=== PATIENT | male | born 1965 | race Caucasian/White ===

== ENCOUNTER 2020-02-29 14:24 | Inpatient (IN) | payer BC ==
[~2020-02-29] VITALS: Ht 172.7 cm; Wt 83.8 kg
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
[2020-02-29 14:57] LABS: BASO % 0 % (0-3); EOS # 0.1 x10^3/uL (0.0-0.7); EOS % 0 % (0-3); HEMATOCRIT 46.1 % (39.0-53.0); HEMOGLOBIN 15.9 g/dL (13.0-17.5); LYMPH # 1.2 x10^3/uL (1.0-4.8); LYMPH % 8 % (24-48); MEAN CORPUSCULAR HEMOGLOBIN 30 pg (25-35); MEAN CORPUSCULAR HGB CONC 34 g/dL (31-37); MEAN CORPUSCULAR VOLUME 87 fL (79-100); MONO # 1.2 x10^3/uL (0.0-1.1); MONO % 8 % (0-9); NEUT # 12.3 x10^3/uL (1.8-7.7); NEUT % 83 % (31-73); PLATELET COUNT 195 x10^3/uL (140-400); WHITE BLOOD COUNT 14.8 x10^3/uL (4.0-11.0)
[2020-02-29] MEDS ORDERED: IV NORMAL SALINE 1000ML BAG 1,000 ML IV ONE (15:00)
[2020-02-29 15:12] LABS: CALCIUM 9.5 mg/dL (8.5-10.1); CREATININE 0.7 mg/dL (0.7-1.3); GFR 116.7
[2020-02-29] MEDS ORDERED: IOHEXOL 300 MG/ML 100ML VIAL. IV ONE (15:15)
[2020-02-29] MEDS ORDERED: CONTRAST GIVEN. MC PRN (15:15)
[2020-02-29 15:20] LABS: ALBUMIN 4.5 g/dL (3.4-5.0); ALBUMIN/GLOBULIN RATIO 1.5 (1.0-1.7); TOTAL BILIRUBIN 0.5 mg/dL (0.2-1.0); TOTAL PROTEIN 7.5 g/dL (6.4-8.2)
[2020-02-29 15:41] LABS: BILIRUBIN,URINE NEGATIVE (NEG); CLARITY,URINE CLEAR; COLOR,URINE YELLOW; NITRITE,URINE NEGATIVE (NEG); PROTEIN,URINE NEGATIVE (NEG-TRACE)
[2020-02-29 15:52] LABS: BACTERIA,URINE 0 /HPF (0-FEW); BARBITURATES NEG (NEG); BENZODIAZEPINES NEG (NEG); CANNABINOIDS NEG (NEG); COCAINE NEG (NEG); METHADONE NEG (NEG); OPIATES NEG (NEG); PHENCYCLIDINE NEG (NEG); RBC,URINE OCC /HPF (0-2); SQUAMOUS EPITHELIAL CELL,UR OCC /LPF; WBC,URINE OCC /HPF (0-4)
[2020-02-29 15:53] LABS: AMPHETAMINE/METHAMPHETAMINE NEG (NEG)
--- NOTE | 2020-02-29 16:18 | RAD ---
Exam: CT abdomen and pelvis with contrast INDICATION: Right lower quadrant pain TECHNIQUE: Sequential axial images through the abdomen and pelvis obtained following the administration of 75 mL of Omni 300 IV contrast. Sagittal and coronal reformatted images were reconstructed from the axial data and reviewed. Comparisons: None FINDINGS: Heart size is normal. No pericardial effusion. Visualized lung bases are clear. No pleural effusion. There is diffuse hepatic steatosis. Spleen, pancreas, gallbladder and adrenals are unremarkable. No perinephric inflammation or hydronephrosis. Kidneys demonstrate symmetric enhancement. No renal or ureteral calculi are identified. Bladder is decompressed not well evaluated. Prostate is not enlarged. The appendix is dilated with adjacent fat stranding. No evidence for perforation or adjacent abscess. Remainder of the large and small bowel are unremarkable. No free intra-abdominal air or fluid. No obstruction. Abdominal aorta has a normal course and caliber. Abdominal vasculature is patent. No enlarged intra-abdominal lymph nodes are identified. No suspicious osseous lesions or acute fractures. IMPRESSION: Findings of acute appendicitis. No evidence for perforation or adjacent abscess. Exposure: One or more of the following in the visualized dose reduction techniques were utilized for this examination: 1. Automated exposure control 2. Adjustment of the MA and/or KV according to patient size 3. Use of iterative of reconstructive technique Electronically signed by: Trupti Wagner MD (02/29/2020 4:15 PM) [id number]
[2020-02-29] MEDS ORDERED: PIPERACILLIN/TAZOBACTAM 3.375 GM in IV NORMAL SALINE 50ML 50 ML IV ONE (16:30)
[2020-02-29] MEDS ORDERED: ALBUTEROL SULFATE 2.5 MG/3 ML NEBU. NEB PRN (17:00)
[2020-02-29] MEDS ORDERED: ACETAMINOPHEN 650 MG SUPP.RECT. PR PRN (17:00)
[2020-02-29] MEDS ORDERED: ONDANSETRON PF 4 MG/2 ML VIAL. IV PRN (17:00)
[2020-02-29] MEDS ORDERED: ACETAMINOPHEN 325 MG TABLET. PO PRN (17:00)
[2020-02-29] MEDS ORDERED: diphenhydrAMINE 50 MG/ML VIAL IVP PRN (17:00)
[2020-02-29] MEDS ORDERED: ZOLPIDEM 5 MG TABLET. PO PRN (17:00)
[2020-02-29] MEDS: ENOXAPARIN 40 MG/0.4 ML SYRINGE. SQ SCH (18:35)
--- NOTE | 2020-02-29 19:10 | NUR ---
Patient admitted from ER to room 444 per cart. Admitting diagnosis: acute appendicitis. Patient c/o of RLQ abdominal pain that started at 0200. He went to the doctor at [place] and was told to come to ER for a CT Scan. Positive for acute appendicitis. Patient is A&Ox4 and has NKA. Patient is anxious about being in the hospital. Patient is comfortable a this time. Surgery scheduled for 03/01 at 12noon. Will continue to monitor.
[2020-02-29 19:15] VITALS: BP 115/65
--- NOTE | 2020-02-29 19:32 | PDOC1 ---
History and Physical Date of Admission Date of Admission 02/29/2020 Identification/Chief Complaint Chief Complaint Dianna augustine Source Source: Chart review History of Present Illness History of Present Illness Patient is a 55-year-old gentleman with past medical history of diabetes mellitus type 2 who was in his usual state of health until this morning at 3 AM when he started complaining of right lower quadrant pain. The patient night prior had taken medication for erectile dysfunction and was concerned that this may have provoked this sudden onset of abdominal pain. He tried to cope with the symptoms at home nevertheless he continued to progress to the point that he described the pain as a sharp sensation started as a 3 out of 10 intensity and finally when he consulted the emergency department was 10 out of 10. The patient has some nausea no vomiting no dietary transgressions no sick contacts have been reported. He was brought to the emergency department after just walking around was painful for the patient. He denied any chills no diaphoresis was reported no diarrhea and the patient was diagnosed with an acute a ppendicitis in the emergency department reason why we were asked to admit the patient for definitive treatment. At the time of my evaluation patient is in no acute distress he is laying in bed in the lateral decubitus he is comfortable and in no pain. Patient denies any nausea no vomiting has been reported. Plan of care explained detail and all concerns addressed to the best of my abilities Past Medical History Endocrine: Diabetes Past Surgical History Past Surgical History: No pertinent history Family History Family History: No Significant Social History Smoke: No ALCOHOL: none Drugs: None Current Problem List Problem List Problems Medical Problems: (1) Acute appendicitis Status: Acute Current Medications Current Medications Current Medications Medications (Trade) Dose Ordered Sig/Chan Start Time Stop Time Status Last Admin Dose Admin Acetaminophen (Tylenol Supp) 650 mg PRN Q4HRS PRN 02/29/20 17:00 Acetaminophen (Tylenol) 650 mg PRN Q4HRS PRN 02/29/20 17:00 Albuterol Sulfate (Ventolin Neb Soln) 2.5 mg PRN Q4HRS PRN 02/29/20 17:00 Diphenhydramine HCl (Benadryl) 25 mg PRN Q4HRS PRN 02/29/20 17:00 Enoxaparin Sodium (Lovenox 40mg Syringe) 40 mg Q24H 02/29/20 18:00 02/29/20 18:35 40 MG Info (CONTRAST GIVEN -- Rx MONITORING) 1 each PRN DAILY PRN 02/29/20 15:15 03/02/20 15:14 Iohexol (Omnipaque 300 Mg/ml) 75 ml 1X ONCE 02/29/20 15:15 02/29/20 15:16 DC 02/29/20 15:15 75 ML Lorazepam (Ativan Inj) 1 mg PRN Q4HRS PRN 02/29/20 17:00 02/29/20 18:35 1 MG Ondansetron HCl (Zofran) 4 mg PRN Q4HRS PRN 02/29/20 17:00 Piperacillin Sod/ Tazobactam Sod 3.375 gm/Sodium Chloride 50 ml @ 100 mls/hr Q6HRS 03/01/20 00:00 Sodium Chloride 1,000 ml @ 100 mls/hr Q10H 02/29/20 16:50 Zolpidem Tartrate (Ambien) 5 mg PRN QHS PRN 02/29/20 17:00 Allergies Allergies Allergies Coded Allergies Type Severity Reaction Last Updated Verified No Known Drug Allergies 02/29/20 No ROS Review of System CONSTITUTIONAL: No fever or chills EYES: No recent changes SKIN: No rash or itching CARDIOVASCULAR: No chest pain, syncope, palpitations, or edema RESPIRATORY: No SOB or cough GASTROINTESTINAL: No nausea, vomiting or abdominal pain NEUROLOGICAL: No headaches or weakness ENDOCRINE: No cold or heat intolerance GENITOURINARY: No urgency or frequency of urination MUSCULOSKELETAL: No back pain or joint pain LYMPHATICS: No enlarged lymph nodes PSYCHIATRIC: No anxiety or depression Physical Exam Physical Exam GEN.: No apparent distress. Alert and oriented. HEENT: Head is normocephalic, atraumatic NECK: Supple. LUNGS: Clear to auscultation. HEART: RRR, S1, S2 present. Peripheral pulses intact ABDOMEN: Soft, nontender. Positive bowel sounds. EXTREMITIES: Without any cyanosis. NEUROLOGIC: Normal speech, normal tone PSYCHIATRIC: Normal affect, normal mood. SKIN: No ulcerations Vitals Vitals Vital Signs Date Time Temp Pulse Resp B/P (MAP) Pulse Ox O2 Delivery O2 Flow Rate FiO2 02/29/20 18:00 90 124/63 (83) 98 Room Air 02/29/20 14:39 97.9 16 97.9 Labs Labs Laboratory Tests Test 02/29/20 14:47 02/29/20 15:20 02/29/20 17:25 White Blood Count 14.8 x10^3/uL (4.0-11.0) Red Blood Count 5.30 x10^6/uL (4.30-5.70) Hemoglobin 15.9 g/dL (13.0-17.5) Hematocrit 46.1 % (39.0-53.0) Mean Corpuscular Volume 87 fL (79-100) Mean Corpuscular Hemoglobin 30 pg (25-35) Mean Corpuscular Hemoglobin Concent 34 g/dL (31-37) Red Cell Distribution Width 14.0 % (11.5-14.5) Platelet Count 195 x10^3/uL (140-400) Neutrophils (%) (Auto) 83 % (31-73) Lymphocytes (%) (Auto) 8 % (24-48) Monocytes (%) (Auto) 8 % (0-9) Eosinophils (%) (Auto) 0 % (0-3) Basophils (%) (Auto) 0 % (0-3) Neutrophils # (Auto) 12.3 x10^3/uL (1.8-7.7) Lymphocytes # (Auto) 1.2 x10^3/uL (1.0-4.8) Monocytes # (Auto) 1.2 x10^3/uL (0.0-1.1) Eosinophils # (Auto) 0.1 x10^3/uL (0.0-0.7) Basophils # (Auto) 0.0 x10^3/uL (0.0-0.2) Prothrombin Time 11.0 SEC (11.7-14.0) Prothromb Time International Ratio 0.8 (0.8-1.1) Sodium Level 139 mmol/L (136-145) Potassium Level 4.0 mmol/L (3.5-5.1) Chloride Level 101 mmol/L (98-107) Carbon Dioxide Level 27 mmol/L (21-32) Anion Gap 11 (6-14) Blood Urea Nitrogen 10 mg/dL (8-26) Creatinine 0.7 mg/dL (0.7-1.3) Estimated GFR (Cockcroft-Gault) 116.7 BUN/Creatinine Ratio 14 (6-20) Glucose Level 124 mg/dL (70-99) Calcium Level 9.5 mg/dL (8.5-10.1) Total Bilirubin 0.5 mg/dL (0.2-1.0) Aspartate Amino Transf (AST/SGOT) 31 U/L (15-37) Alanine Aminotransferase (ALT/SGPT) 77 U/L (16-63) Alkaline Phosphatase 49 U/L (46-116) Troponin I Quantitative < 0.017 ng/mL (0.000-0.055) Total Protein 7.5 g/dL (6.4-8.2) Albumin 4.5 g/dL (3.4-5.0) Albumin/Globulin Ratio 1.5 (1.0-1.7) Lipase 101 U/L (73-393) Urine Collection Type Unknown Urine Color Yellow Urine Clarity Clear Urine pH 6.0 (<5.0-8.0) Urine Specific [place] <=1.005 (1.000-1.030) Urine Protein Negative mg/dL (NEG-TRACE) Urine Glucose (UA) Negative mg/dL (NEG) Urine Ketones (Stick) Trace mg/dL (NEG) Urine Blood Negative (NEG) Urine Nitrite Negative (NEG) Urine Bilirubin Negative (NEG) Urine Urobilinogen Dipstick 1.0 mg/dL (0.2 mg/dL) Urine Leukocyte Esterase Negative (NEG) Urine RBC Occ /HPF (0-2) Urine WBC Occ /HPF (0-4) Urine Squamous Epithelial Cells Occ /LPF Urine Bacteria 0 /HPF (0-FEW) Urine Opiates Screen Neg (NEG) Urine Methadone Screen Neg (NEG) Urine Barbiturates Neg (NEG) Urine Phencyclidine Screen Neg (NEG) Urine Amphetamine/Methamphetamine Neg (NEG) Urine Benzodiazepines Screen Neg (NEG) Urine Cocaine Screen Neg (NEG) Urine Cannabinoids Screen Neg (NEG) Urine Ethyl Alcohol Neg (NEG) SARS-CoV-2 Antigen (Rapid) Negative (NEGATIVE) Laboratory Tests Test 02/29/20 14:47 02/29/20 15:20 02/29/20 17:25 White Blood Count 14.8 x10^3/uL (4.0-11.0) Red Blood Count 5.30 x10^6/uL (4.30-5.70) Hemoglobin 15.9 g/dL (13.0-17.5) Hematocrit 46.1 % (39.0-53.0) Mean Corpuscular Volume 87 fL (79-100) Mean Corpuscular Hemoglobin 30 pg (25-35) Mean Corpuscular Hemoglobin Concent 34 g/dL (31-37) Red Cell Distribution Width 14.0 % (11.5-14.5) Platelet Count 195 x10^3/uL (140-400) Neutrophils (%) (Auto) 83 % (31-73) Lymphocytes (%) (Auto) 8 % (24-48) Monocytes (%) (Auto) 8 % (0-9) Eosinophils (%) (Auto) 0 % (0-3) Basophils (%) (Auto) 0 % (0-3) Neutrophils # (Auto) 12.3 x10^3/uL (1.8-7.7) Lymphocytes # (Auto) 1.2 x10^3/uL (1.0-4.8) Monocytes # (Auto) 1.2 x10^3/uL (0.0-1.1) Eosinophils # (Auto) 0.1 x10^3/uL (0.0-0.7) Basophils # (Auto) 0.0 x10^3/uL (0.0-0.2) Prothrombin Time 11.0 SEC (11.7-14.0) Prothromb Time International Ratio 0.8 (0.8-1.1) Sodium Level 139 mmol/L (136-145) Potassium Level 4.0 mmol/L (3.5-5.1) Chloride Level 101 mmol/L (98-107) Carbon Dioxide Level 27 mmol/L (21-32) Anion Gap 11 (6-14) Blood Urea Nitrogen 10 mg/dL (8-26) Creatinine 0.7 mg/dL (0.7-1.3) Estimated GFR (Cockcroft-Gault) 116.7 BUN/Creatinine Ratio 14 (6-20) Glucose Level 124 mg/dL (70-99) Calcium Level 9.5 mg/dL (8.5-10.1) Total Bilirubin 0.5 mg/dL (0.2-1.0) Aspartate Amino Transf (AST/SGOT) 31 U/L (15-37) Alanine Aminotransferase (ALT/SGPT) 77 U/L (16-63) Alkaline Phosphatase 49 U/L (46-116) Troponin I Quantitative < 0.017 ng/mL (0.000-0.055) Total Protein 7.5 g/dL (6.4-8.2) Albumin 4.5 g/dL (3.4-5.0) Albumin/Globulin Ratio 1.5 (1.0-1.7) Lipase 101 U/L (73-393) Urine Collection Type Unknown Urine Color Yellow Urine Clarity Clear Urine pH 6.0 (<5.0-8.0) Urine Specific [place] <=1.005 (1.000-1.030) Urine Protein Negative mg/dL (NEG-TRACE) Urine Glucose (UA) Negative mg/dL (NEG) Urine Ketones (Stick) Trace mg/dL (NEG) Urine Blood Negative (NEG) Urine Nitrite Negative (NEG) Urine Bilirubin Negative (NEG) Urine Urobilinogen Dipstick 1.0 mg/dL (0.2 mg/dL) Urine Leukocyte Esterase Negative (NEG) Urine RBC Occ /HPF (0-2) Urine WBC Occ /HPF (0-4) Urine Squamous Epithelial Cells Occ /LPF Urine Bacteria 0 /HPF (0-FEW) Urine Opiates Screen Neg (NEG) Urine Methadone Screen Neg (NEG) Urine Barbiturates Neg (NEG) Urine Phencyclidine Screen Neg (NEG) Urine Amphetamine/Methamphetamine Neg (NEG) Urine Benzodiazepines Screen Neg (NEG) Urine Cocaine Screen Neg (NEG) Urine Cannabinoids Screen Neg (NEG) Urine Ethyl Alcohol Neg (NEG) SARS-CoV-2 Antigen (Rapid) Negative (NEGATIVE) VTE Prophylaxis Ordered VTE Prophylaxis Devices: No VTE Pharmacological Prophylaxi: Yes Assessment/Plan Assessment/Plan Acute appendicitis Diabetes mellitus type 2 Leukocytosis secondary to appendicitis Plan N.p.o. as per Dr. Rodriguez OR in the a.m. Pain management Further recommendations based on the clinical course DVT prophylaxis with Lovenox Justifications for Admission Other Justification NAVDEEP ELIAS MD Feb 29, 2020 19:31
[2020-02-29] MEDS ORDERED: fentaNYL PF VIAL 100 MCG/2 ML VIAL IVP PRN (20:15)
[2020-02-29] MEDS: IV NORMAL SALINE 1000ML BAG 1,000 ML IV SCH (20:54)
[2020-02-29 23:36] VITALS: BP 110/56
[2020-03-01] VITALS (12 sets, daily range): BP systolic 99–111; BP diastolic 59–68
--- NOTE | 2020-03-01 04:12 | EKG ---
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
[2020-03-01] MEDS: PIPERACILLIN/TAZOBACTAM 3.375 GM in IV NORMAL SALINE 50ML 50 ML IV SCH ×6 (05:44→23:21)
[2020-03-01] MEDS ORDERED: IV RINGERS,LACTATED 1000ML 1,000 ML IV SCH (07:59)
[2020-03-01] MEDS ORDERED: PROCHLORPERAZINE 10 MG/2 ML VIAL. IV PRN (08:00)
[2020-03-01] MEDS ORDERED: ONDANSETRON PF 4 MG/2 ML VIAL. IV PRN (08:00)
[2020-03-01] MEDS ORDERED: HYDROmorphone 2 MG/ML VIAL IV PRN (08:00)
[2020-03-01] MEDS ORDERED: MORPHINE SULFATE 2 MG/ML VIAL. IV PRN (08:00)
[2020-03-01] MEDS ORDERED: fentaNYL PF VIAL 100 MCG/2 ML VIAL IV PRN (08:00)
[2020-03-01] MEDS ORDERED: fentaNYL PF VIAL 100 MCG/2 ML VIAL ONE ×2 (08:43→10:54)
[2020-03-01] MEDS ORDERED: ROCURONIUM 50 MG/5 ML VIAL. ONE (08:43)
[2020-03-01] MEDS ORDERED: KETOROLAC 30 MG/ML VIAL. ONE (08:44)
[2020-03-01] MEDS ORDERED: SEVOFLURANE 31 TO 60 MINUTES. IH ONE (08:44)
[2020-03-01] MEDS ORDERED: LIDOCAINE 2% PF 5 ML VIAL. ONE (08:44)
[2020-03-01] MEDS ORDERED: NEOSTIGMINE METHYLSULFATE 5 MG/5 ML SYRINGE. ONE (08:44)
[2020-03-01] MEDS ORDERED: PROPOFOL 10 MG/ML (20ML) VIAL. IV ONE ×2 (08:44→10:34)
[2020-03-01] MEDS ORDERED: GLYCOPYRROLATE 1 MG/5 ML VIAL. ONE (08:44)
[2020-03-01] MEDS ORDERED: DEXAMETHASONE SOD PHOS 4 MG/ML VIAL ONE (08:44)
[2020-03-01] MEDS ORDERED: ONDANSETRON PF 4 MG/2 ML VIAL. ONE (08:44)
[2020-03-01] MEDS ORDERED: BUPIVACAINE-EPI 0.5%-1:200000 MPF 30 ML VIAL. ONE (09:43)
--- NOTE | 2020-03-01 09:45 | NUR ---
SW following. Discussed with RN, pt from home, room air, NPO, COVID-19 negative. Pt having surgery today lap appy vs open appy. SW will continue to follow.
[2020-03-01] MEDS ORDERED: SUCCINYLCHOLINE 200 MG/10 ML VIAL. ONE (10:01)
--- NOTE | 2020-03-01 10:01 | PDOC2 ---
CONSULT Date of Consult Date of Consult DATE: 03/01/20 TIME: 09:59 History of Present Illness Reason for Visit: The patient is a 55-year-old male who presented with abdominal pain. The pain began yesterday and was located in the right lower quadrant. It remained persistent prompting him to report to the emergency department. He denies any nausea or vomiting. The evaluation in the emergency department is consistent with acute appendicitis. Past Medical History Endocrine: Diabetes Past Surgical History Past Surgical History: No pertinent history Family History Family History: No Significant Social History No ALCOHOL: none Drugs: None Current Problem List Problem List Problems Medical Problems: (1) Acute appendicitis Status: Acute Current Medications Current Medications Current Medications Sodium Chloride 1,000 ml @ 1,000 mls/hr 1X ONCE IV Last administered on 02/29/20at 14:53; Start 02/29/20 at 15:00; Stop 02/29/20 at 15:59; Status DC Iohexol (Omnipaque 300 Mg/ml) 75 ml 1X ONCE IV Last administered on 02/29/20at 15:15; Start 02/29/20 at 15:15; Stop 02/29/20 at 15:16; Status DC Info (CONTRAST GIVEN -- Rx MONITORING) 1 each PRN DAILY PRN MC SEE COMMENTS; Start 02/29/20 at 15:15; Stop 03/02/20 at 15:14 Piperacillin Sod/ Tazobactam Sod 3.375 gm/Sodium Chloride 50 ml @ 100 mls/hr 1X ONCE IV Last administered on 02/29/20at 17:03; Start 02/29/20 at 16:30; Stop 02/29/20 at 16:59; Status DC Sodium Chloride 1,000 ml @ 100 mls/hr Q10H IV Last administered on 02/29/20at 20:54; Start 02/29/20 at 16:50 Ondansetron HCl (Zofran) 4 mg PRN Q4HRS PRN IV NAUSEA/VOMITING; Start 02/29/20 at 17:00 Zolpidem Tartrate (Ambien) 5 mg PRN QHS PRN PO INSOMNIA; Start 02/29/20 at 17:00 Acetaminophen (Tylenol) 650 mg PRN Q4HRS PRN PO TEMP OVER 100.4F OR MILD PAIN; Start 02/29/20 at 17:00 Acetaminophen (Tylenol Supp) 650 mg PRN Q4HRS PRN MS TEMP OVER 100.4F OR MILD PAIN; Start 02/29/20 at 17:00 Diphenhydramine HCl (Benadryl) 25 mg PRN Q4HRS PRN IVP ITCHING; Start 02/29/20 at 17:00 Albuterol Sulfate (Ventolin Neb Soln) 2.5 mg PRN Q4HRS PRN NEB SHORTNESS OF BREATH; Start 02/29/20 at 17:00 Lorazepam (Ativan Inj) 1 mg PRN Q4HRS PRN IV ANXIETY / AGITATION Last administered on 02/29/20at 18:35; Start 02/29/20 at 17:00 Enoxaparin Sodium (Lovenox 40mg Syringe) 40 mg Q24H SQ Last administered on 02/29/20at 18:35; Start 02/29/20 at 18:00 Piperacillin Sod/ Tazobactam Sod 3.375 gm/Sodium Chloride 50 ml @ 100 mls/hr Q6HRS IV Last administered on 03/01/20at 05:44; Start 03/01/20 at 00:00 Fentanyl Citrate (Fentanyl 2ml Vial) 25 mcg PRN Q2HR PRN IVP PAIN; Start 02/29/20 at 20:15 Ondansetron HCl (Zofran) 4 mg PRN Q6HRS PRN IV NAUSEA/VOMITING; Start 03/01/20 at 08:00; Stop 03/01/20 at 20:00 Fentanyl Citrate (Fentanyl 2ml Vial) 25 mcg PRN Q5MIN PRN IV MILD PAIN 1-3; Start 03/01/20 at 08:00; Stop 03/01/20 at 20:00 Fentanyl Citrate (Fentanyl 2ml Vial) 50 mcg PRN Q5MIN PRN IV MODERATE TO SEVERE PAIN; Start 03/01/20 at 08:00; Stop 03/01/20 at 20:00 Morphine Sulfate (Morphine Sulfate) 1 mg PRN Q10MIN PRN IV SEVERE PAIN 7-10; Start 03/01/20 at 08:00; Stop 03/01/20 at 20:00 Ringer's Solution 1,000 ml @ 30 mls/hr Q24H IV Last administered on 03/01/20at 08:19; Start 03/01/20 at 07:59; Stop 03/01/20 at 19:58 Hydromorphone HCl (Dilaudid) 0.5 mg PRN Q10MIN PRN IV SEV PAIN, Second choice; Start 03/01/20 at 08:00; Stop 03/01/20 at 20:00 Prochlorperazine Edisylate (Compazine) 5 mg PACU PRN PRN IV NAUSEA, MRX1; Start 03/01/20 at 08:00; Stop 03/01/20 at 20:00 Rocuronium Cinebar (Zemuron) 50 mg STK-MED ONCE .ROUTE ; Start 03/01/20 at 08:43; Stop 03/01/20 at 08:44; Status DC Fentanyl Citrate (Fentanyl 2ml Vial) 100 mcg STK-MED ONCE .ROUTE ; Start 03/01/20 at 08:43; Stop 03/01/20 at 08:44; Status DC Sevoflurane (Ultane) 30 ml STK-MED ONCE IH ; Start 03/01/20 at 08:44; Stop 03/01/20 at 08:44; Status DC Dexamethasone Sodium Phosphate (Decadron) 4 mg STK-MED ONCE .ROUTE ; Start 03/01/20 at 08:44; Stop 03/01/20 at 08:44; Status DC Propofol (Diprivan) 200 mg STK-MED ONCE IV ; Start 03/01/20 at 08:44; Stop 03/01/20 at 08:44; Status DC Lidocaine HCl (Lidocaine Pf 2% Vial) 5 ml STK-MED ONCE .ROUTE ; Start 03/01/20 at 08:44; Stop 03/01/20 at 08:44; Status DC Ondansetron HCl (Zofran) 4 mg STK-MED ONCE .ROUTE ; Start 03/01/20 at 08:44; Stop 03/01/20 at 08:44; Status DC Ketorolac Tromethamine (Toradol 30mg Vial) 30 mg STK-MED ONCE .ROUTE ; Start 03/01/20 at 08:44; Stop 03/01/20 at 08:44; Status DC Neostigmine Cinebar (Neostigmine Methylsulfate) 5 mg STK-MED ONCE .ROUTE ; Start 03/01/20 at 08:44; Stop 03/01/20 at 08:44; Status DC Glycopyrrolate (Robinul) 1 mg STK-MED ONCE .ROUTE ; Start 03/01/20 at 08:44; Stop 03/01/20 at 08:45; Status DC Bupivacaine HCl/ Epinephrine Bitart (Sensorcain-Epi 0.5%-1:769665 Mpf) 30 ml STK-MED ONCE .ROUTE ; Start 03/01/20 at 09:43; Stop 03/01/20 at 09:43; Status DC Allergies Allergies: Coded Allergies: No Known Drug Allergies (Unverified , 02/29/20) ROS General: No: Chills, Night Sweats, Fatigue, Malaise, Appetite, Other PSYCHOLOGICAL ROS: No: Anxiety, Behavioral Disorder, Concentration difficultie, Decreased libido, Depression, Disorientation, Hallucinations, Hostility, Irritablity, Memory difficulties, Mood Swings, Obsessive thoughts, Physical abuse, Sexual abuse, Sleep disturbances, Suicidal ideation, Other Eyes: No Blurry vision, No Decreased vision, No Double vision, No Dry eyes, No Excessive tearing, No Eye Pain, No Itchy Eyes, No Loss of vision, No Photophobia, No Scotomata, No Uses contacts, No Uses glasses, No Other HEENT: No: Heacaches, Visual Changes, Hearing change, Nasal congestion, Nasal discharge, Oral lesions, Sinus pain, Sore Throat, Epistaxis, Sneezing, Snoring, Tinnitus, Vertigo, Vocal changes, Other ALLERGY AND IMMUNOLOGY: No: Hives, Insect Bite Sensitivity, Itchy/Watery Eyes, Nasal Congestion, Post Nasal Drip, Seasonal Allergies, Other ENDOCRINE: No: Breast Changes, Galactorrhea, Hair Pattern Changes, Hot Flashes, Malaise/lethargy, Mood Swings, Palpitations, Polydipsia/polyuria, Skin Changes, Temperature Intolerance, Unexpected Weight Changes, Other Respiratory: No: Cough, Hemoptysis, Orthopnea, Pleuritic Pain, Shortness of breath, SOB with excertion, Sputum Changes, Stridor, Tachypnea, Wheezing, Other Cardiovascular: No Chest Pain, No Palpitations, No Orthopnea, No Paroxysmal Noc. Dyspnea, No Edema, No Lt Headedness, No Other Gastrointestinal: Yes Abdominal Pain Genitourinary: No Dysuria, No Frequency, No Incontinence, No Hematuria, No Retention, No Discharge, No Urgency, No Pain, No Flank Pain, No Other, No , No , No , No , No , No , No Musculoskeletal: No Gait Disturbance, No Joint Pain, No Joint Stiffness, No Joint Swelling, No Muscle Pain, No Muscular Weakness, No Pain In:, No Swelling In:, No Other Neurological: No Behavorial Changes, No Bowel/Bladder ControlChng, No Confusion, No Dizziness, No Gait Disturbance, No Headaches, No Impaired Coord/balance, No Memory Loss, No Numbness/Tingling, No Seizures, No Speech Problems, No Tremors, No Visual Changes, No Weakness, No Other Skin: No Dry Skin, No Eczema, No Hair Changes, No Lumps, No Mole Changes, No Mottling, No Nail Changes, No Pruritus, No Rash, No Skin Lesion Changes, No Other, No Acne Physical Exam General: Alert, Oriented X3, Cooperative HEENT: Atraumatic Lungs: Clear to auscultation Heart: Regular rate Abdomen: Soft (Tender to palpation the right lower quadrant with guarding) Extremities: No clubbing, No cyanosis Skin: No rashes Neuro: Normal speech Psych/Mental Status: Mental status NL Vitals VITALS Vital Signs Date Time Temp Pulse Resp B/P (MAP) Pulse Ox O2 Delivery O2 Flow Rate FiO2 03/01/20 08:07 98.6 70 15 111/71 95 Room Air 98.6 Labs Labs Laboratory Tests Test 02/29/20 14:47 02/29/20 15:20 02/29/20 17:25 White Blood Count 14.8 x10^3/uL (4.0-11.0) Red Blood Count 5.30 x10^6/uL (4.30-5.70) Hemoglobin 15.9 g/dL (13.0-17.5) Hematocrit 46.1 % (39.0-53.0) Mean Corpuscular Volume 87 fL (79-100) Mean Corpuscular Hemoglobin 30 pg (25-35) Mean Corpuscular Hemoglobin Concent 34 g/dL (31-37) Red Cell Distribution Width 14.0 % (11.5-14.5) Platelet Count 195 x10^3/uL (140-400) Neutrophils (%) (Auto) 83 % (31-73) Lymphocytes (%) (Auto) 8 % (24-48) Monocytes (%) (Auto) 8 % (0-9) Eosinophils (%) (Auto) 0 % (0-3) Basophils (%) (Auto) 0 % (0-3) Neutrophils # (Auto) 12.3 x10^3/uL (1.8-7.7) Lymphocytes # (Auto) 1.2 x10^3/uL (1.0-4.8) Monocytes # (Auto) 1.2 x10^3/uL (0.0-1.1) Eosinophils # (Auto) 0.1 x10^3/uL (0.0-0.7) Basophils # (Auto) 0.0 x10^3/uL (0.0-0.2) Prothrombin Time 11.0 SEC (11.7-14.0) Prothromb Time International Ratio 0.8 (0.8-1.1) Sodium Level 139 mmol/L (136-145) Potassium Level 4.0 mmol/L (3.5-5.1) Chloride Level 101 mmol/L (98-107) Carbon Dioxide Level 27 mmol/L (21-32) Anion Gap 11 (6-14) Blood Urea Nitrogen 10 mg/dL (8-26) Creatinine 0.7 mg/dL (0.7-1.3) Estimated GFR (Cockcroft-Gault) 116.7 BUN/Creatinine Ratio 14 (6-20) Glucose Level 124 mg/dL (70-99) Calcium Level 9.5 mg/dL (8.5-10.1) Total Bilirubin 0.5 mg/dL (0.2-1.0) Aspartate Amino Transf (AST/SGOT) 31 U/L (15-37) Alanine Aminotransferase (ALT/SGPT) 77 U/L (16-63) Alkaline Phosphatase 49 U/L (46-116) Troponin I Quantitative < 0.017 ng/mL (0.000-0.055) Total Protein 7.5 g/dL (6.4-8.2) Albumin 4.5 g/dL (3.4-5.0) Albumin/Globulin Ratio 1.5 (1.0-1.7) Lipase 101 U/L (73-393) Urine Collection Type Unknown Urine Color Yellow Urine Clarity Clear Urine pH 6.0 (<5.0-8.0) Urine Specific [place] <=1.005 (1.000-1.030) Urine Protein Negative mg/dL (NEG-TRACE) Urine Glucose (UA) Negative mg/dL (NEG) Urine Ketones (Stick) Trace mg/dL (NEG) Urine Blood Negative (NEG) Urine Nitrite Negative (NEG) Urine Bilirubin Negative (NEG) Urine Urobilinogen Dipstick 1.0 mg/dL (0.2 mg/dL) Urine Leukocyte Esterase Negative (NEG) Urine RBC Occ /HPF (0-2) Urine WBC Occ /HPF (0-4) Urine Squamous Epithelial Cells Occ /LPF Urine Bacteria 0 /HPF (0-FEW) Urine Opiates Screen Neg (NEG) Urine Methadone Screen Neg (NEG) Urine Barbiturates Neg (NEG) Urine Phencyclidine Screen Neg (NEG) Urine Amphetamine/Methamphetamine Neg (NEG) Urine Benzodiazepines Screen Neg (NEG) Urine Cocaine Screen Neg (NEG) Urine Cannabinoids Screen Neg (NEG) Urine Ethyl Alcohol Neg (NEG) SARS-CoV-2 Antigen (Rapid) Negative (NEGATIVE) Laboratory Tests Test 02/29/20 14:47 02/29/20 15:20 02/29/20 17:25 White Blood Count 14.8 x10^3/uL (4.0-11.0) Red Blood Count 5.30 x10^6/uL (4.30-5.70) Hemoglobin 15.9 g/dL (13.0-17.5) Hematocrit 46.1 % (39.0-53.0) Mean Corpuscular Volume 87 fL (79-100) Mean Corpuscular Hemoglobin 30 pg (25-35) Mean Corpuscular Hemoglobin Concent 34 g/dL (31-37) Red Cell Distribution Width 14.0 % (11.5-14.5) Platelet Count 195 x10^3/uL (140-400) Neutrophils (%) (Auto) 83 % (31-73) Lymphocytes (%) (Auto) 8 % (24-48) Monocytes (%) (Auto) 8 % (0-9) Eosinophils (%) (Auto) 0 % (0-3) Basophils (%) (Auto) 0 % (0-3) Neutrophils # (Auto) 12.3 x10^3/uL (1.8-7.7) Lymphocytes # (Auto) 1.2 x10^3/uL (1.0-4.8) Monocytes # (Auto) 1.2 x10^3/uL (0.0-1.1) Eosinophils # (Auto) 0.1 x10^3/uL (0.0-0.7) Basophils # (Auto) 0.0 x10^3/uL (0.0-0.2) Prothrombin Time 11.0 SEC (11.7-14.0) Prothromb Time International Ratio 0.8 (0.8-1.1) Sodium Level 139 mmol/L (136-145) Potassium Level 4.0 mmol/L (3.5-5.1) Chloride Level 101 mmol/L (98-107) Carbon Dioxide Level 27 mmol/L (21-32) Anion Gap 11 (6-14) Blood Urea Nitrogen 10 mg/dL (8-26) Creatinine 0.7 mg/dL (0.7-1.3) Estimated GFR (Cockcroft-Gault) 116.7 BUN/Creatinine Ratio 14 (6-20) Glucose Level 124 mg/dL (70-99) Calcium Level 9.5 mg/dL (8.5-10.1) Total Bilirubin 0.5 mg/dL (0.2-1.0) Aspartate Amino Transf (AST/SGOT) 31 U/L (15-37) Alanine Aminotransferase (ALT/SGPT) 77 U/L (16-63) Alkaline Phosphatase 49 U/L (46-116) Troponin I Quantitative < 0.017 ng/mL (0.000-0.055) Total Protein 7.5 g/dL (6.4-8.2) Albumin 4.5 g/dL (3.4-5.0) Albumin/Globulin Ratio 1.5 (1.0-1.7) Lipase 101 U/L (73-393) Urine Collection Type Unknown Urine Color Yellow Urine Clarity Clear Urine pH 6.0 (<5.0-8.0) Urine Specific [place] <=1.005 (1.000-1.030) Urine Protein Negative mg/dL (NEG-TRACE) Urine Glucose (UA) Negative mg/dL (NEG) Urine Ketones (Stick) Trace mg/dL (NEG) Urine Blood Negative (NEG) Urine Nitrite Negative (NEG) Urine Bilirubin Negative (NEG) Urine Urobilinogen Dipstick 1.0 mg/dL (0.2 mg/dL) Urine Leukocyte Esterase Negative (NEG) Urine RBC Occ /HPF (0-2) Urine WBC Occ /HPF (0-4) Urine Squamous Epithelial Cells Occ /LPF Urine Bacteria 0 /HPF (0-FEW) Urine Opiates Screen Neg (NEG) Urine Methadone Screen Neg (NEG) Urine Barbiturates Neg (NEG) Urine Phencyclidine Screen Neg (NEG) Urine Amphetamine/Methamphetamine Neg (NEG) Urine Benzodiazepines Screen Neg (NEG) Urine Cocaine Screen Neg (NEG) Urine Cannabinoids Screen Neg (NEG) Urine Ethyl Alcohol Neg (NEG) SARS-CoV-2 Antigen (Rapid) Negative (NEGATIVE) Assessment/Plan Assessment/Plan 55-year-old male with right lower quadrant pain, evaluation consistent with acute appendicitis. Plan to proceed to the operating room for laparoscopic appendectomy. The details and risks of surgery were discussed with the patient. He understands and would like to proceed. ROEL PIMENTEL MD Mar 01, 2020 10:01
[2020-03-01] MEDS: fentaNYL PF VIAL 100 MCG/2 ML VIAL IV PRN ×2 (11:08→11:33)
--- NOTE | 2020-03-01 11:33 | PDOC4 ---
Operative Note Operative Note Preoperative Diagnosis: Acute Appendicitis Postoperative Diagnosis: Same Procedure: Laparoscopic appendectomy Surgeon: Salo Sandwich Hand: Maty PAIZ Anesthesia: Gen. EBL: 10 mL Specimen: Appendix to pathology Drains: None Complications: None Indication: The patient is a 55 year old male who reported to the emergency department with abdominal pain. The evaluation is consistent with acute appendicitis. The patient was offered surgical treatment with a laparoscopic appendectomy. The risks of surgery were discussed which include bleeding, infection, visceral injury, pain, anesthetic risk, potential need for additional surgery or procedure. The patient understands and would like to proceed. Description: The patient was taken to the operating room and placed supine on the operating table. Gen. anesthesia was performed. The abdomen was prepped with ChloraPrep and draped in a standard surgical manner. A supraumbilical incision w as made through which a veress needle was inserted and a pneumoperitoneum was created. A visualized 5 mm trocar was inserted and the laparoscope was introduced. In the left lower quadrant a 5 mm trocar was inserted. In the suprapubic region a 12 mm trocar was inserted. The appendix was identified and appeared inflamed consistent with acute appendicitis. There was no clear evide nce of perforation or periappendiceal abscess. The mesoappendix was bluntly from the appendix. The mesoappendix was controlled using several clips and it was divided. The appendix was then amputated off the cecum using an Endo ÁNGEL 45 stapling device. The appendix was then placed in an endoscopic bag and extracted at the suprapubic incision site. The fascia there was closed with 0 Vicryl and infiltrated with half percent Marcaine with epinephrine. The RLQ was visualized and the staple line appeared well intact and hemostasis was good. No other abnormalities were identified grossly. The remaining ports were removed and the pneumoperitoneum was relieved. The skin at all incision sites was closed with 4-0 Monocryl. Steri-Strips and dressings were applied. The patient tolerated the procedure well and was sent to the recovery room in stable condition. At the end of the case all counts were correct. ROEL PIMENTEL MD Mar 01, 2020 11:33
[2020-03-01] MEDS: IV NORMAL SALINE 1000ML BAG 1,000 ML IV SCH ×3 (11:34→23:22)
[2020-03-01] MEDS ORDERED: oxyCODONE/APAP 5/325 1 TAB TABLET PO PRN (11:45)
--- NOTE | 2020-03-01 12:15 | NUR ---
Patient underwent laparoscopic appendectomy this morning. He arrived on the unit at 1155, alert, oriented x 4,VSS and denies pain. Three island dressings on the abdomen, clean, dry and intact. We will continue to monitor.
--- NOTE | 2020-03-01 13:53 | PDOC ---
[facility] PROGRESS NOTE Date of Service DOS: DATE: 03/01/20 TIME: 13:51 Chief Complaint Chief Complaint Acute appendicitis Diabetes mellitus type 2 Leukocytosis secondary to appendicitis Plan N.p.o. as per Dr. Rodriguez Patient currently in the OR for laparoscopic appendectomy Will follow with surgery recommendations for postoperative management Pain management Further recommendations based on the clinical course DVT prophylaxis with Lovenox History of Present Illness History of Present Illness 55-year-old gentleman with past medical history of diabetes mellitus type 2 who was in his usual state of health until this morning at 3 AM when he started co mplaining of right lower quadrant pain. The patient night prior had taken medication for erectile dysfunction and was concerned that this may have provoked this sudden onset of abdominal pain. He tried to cope with the symptoms at home nevertheless he continued to progress to the point that he described the pain as a sharp sensation started as a 3 out of 10 intensity and finally when he consulted the emergency department was 10 out of 10. The patient has some nausea no vomiting no dietary transgressions no sick contacts have been reported. He was brought to the emergency department after just walking around was painful for the patient. He denied any chills no diaphoresis was reported no diarrhea and the patient was diagnosed with an acute appendicitis in the emergency department reason why we were asked to admit the patient for definitive treatment. 03/01/2020 No acute events overnight. Discussed with RN. Patient not in the room currently in the OR. Patient will be evaluated immediately postop. Vitals/I&O Vitals/I&O: Vital Signs Date Time Temp Pulse Resp B/P (MAP) Pulse Ox O2 Delivery O2 Flow Rate FiO2 03/01/20 12:30 19 94 Room Air 03/01/20 12:15 73 100/61 (74) 03/01/20 12:00 97.8 97.8 03/01/20 11:10 10 I & O 02/29/20 02/29/20 03/01/20 15:00 23:00 07:00 Intake Total 50 ml 800 ml Balance 50 ml 800 ml Physical Exam General: Alert, Oriented X3, Cooperative Heart: Regular rate Abdomen: Soft (Tender to palpation the right lower quadrant with guarding) Extremities: No clubbing, No cyanosis Skin: No rashes Labs Labs: Laboratory Tests Test 02/29/20 14:47 02/29/20 15:02/29/20 17:25 White Blood Count 14.8 x10^3/uL (4.0-11.0) Red Blood Count 5.30 x10^6/uL (4.30-5.70) Hemoglobin 15.9 g/dL (13.0-17.5) Hematocrit 46.1 % (39.0-53.0) Mean Corpuscular Volume 87 fL (79-100) Mean Corpuscular Hemoglobin 30 pg (25-35) Mean Corpuscular Hemoglobin Concent 34 g/dL (31-37) Red Cell Distribution Width 14.0 % (11.5-14.5) Platelet Count 195 x10^3/uL (140-400) Neutrophils (%) (Auto) 83 % (31-73) Lymphocytes (%) (Auto) 8 % (24-48) Monocytes (%) (Auto) 8 % (0-9) Eosinophils (%) (Auto) 0 % (0-3) Basophils (%) (Auto) 0 % (0-3) Neutrophils # (Auto) 12.3 x10^3/uL (1.8-7.7) Lymphocytes # (Auto) 1.2 x10^3/uL (1.0-4.8) Monocytes # (Auto) 1.2 x10^3/uL (0.0-1.1) Eosinophils # (Auto) 0.1 x10^3/uL (0.0-0.7) Basophils # (Auto) 0.0 x10^3/uL (0.0-0.2) Prothrombin Time 11.0 SEC (11.7-14.0) Prothromb Time International Ratio 0.8 (0.8-1.1) Sodium Level 139 mmol/L (136-145) Potassium Level 4.0 mmol/L (3.5-5.1) Chloride Level 101 mmol/L (98-107) Carbon Dioxide Level 27 mmol/L (21-32) Anion Gap 11 (6-14) Blood Urea Nitrogen 10 mg/dL (8-26) Creatinine 0.7 mg/dL (0.7-1.3) Estimated GFR (Cockcroft-Gault) 116.7 BUN/Creatinine Ratio 14 (6-20) Glucose Level 124 mg/dL (70-99) Calcium Level 9.5 mg/dL (8.5-10.1) Total Bilirubin 0.5 mg/dL (0.2-1.0) Aspartate Amino Transf (AST/SGOT) 31 U/L (15-37) Alanine Aminotransferase (ALT/SGPT) 77 U/L (16-63) Alkaline Phosphatase 49 U/L (46-116) Troponin I Quantitative < 0.017 ng/mL (0.000-0.055) Total Protein 7.5 g/dL (6.4-8.2) Albumin 4.5 g/dL (3.4-5.0) Albumin/Globulin Ratio 1.5 (1.0-1.7) Lipase 101 U/L (73-393) Urine Collection Type Unknown Urine Color Yellow Urine Clarity Clear Urine pH 6.0 (<5.0-8.0) Urine Specific [place] <=1.005 (1.000-1.030) Urine Protein Negative mg/dL (NEG-TRACE) Urine Glucose (UA) Negative mg/dL (NEG) Urine Ketones (Stick) Trace mg/dL (NEG) Urine Blood Negative (NEG) Urine Nitrite Negative (NEG) Urine Bilirubin Negative (NEG) Urine Urobilinogen Dipstick 1.0 mg/dL (0.2 mg/dL) Urine Leukocyte Esterase Negative (NEG) Urine RBC Occ /HPF (0-2) Urine WBC Occ /HPF (0-4) Urine Squamous Epithelial Cells Occ /LPF Urine Bacteria 0 /HPF (0-FEW) Urine Opiates Screen Neg (NEG) Urine Methadone Screen Neg (NEG) Urine Barbiturates Neg (NEG) Urine Phencyclidine Screen Neg (NEG) Urine Amphetamine/Methamphetamine Neg (NEG) Urine Benzodiazepines Screen Neg (NEG) Urine Cocaine Screen Neg (NEG) Urine Cannabinoids Screen Neg (NEG) Urine Ethyl Alcohol Neg (NEG) SARS-CoV-2 Antigen (Rapid) Negative (NEGATIVE) Assessment and Plan Assessmemt and Plan Problems Medical Problems: (1) Acute appendicitis Status: Acute Comment Review of Relevant I have reviewed the following items carlota (where applicable) has been applied. Medications: Current Medications Medications (Trade) Dose Ordered Sig/Chan Route PRN Reason Start Time Stop Time Status Last Admin Dose Admin Sodium Chloride 1,000 ml @ 1,000 mls/hr 1X ONCE IV 02/29/20 15:00 02/29/20 15:59 DC 02/29/20 14:53 Iohexol (Omnipaque 300 Mg/ml) 75 ml 1X ONCE IV 02/29/20 15:15 02/29/20 15:16 DC 02/29/20 15:15 Piperacillin Sod/ Tazobactam Sod 3.375 gm/Sodium Chloride 50 ml @ 100 mls/hr 1X ONCE IV 02/29/20 16:30 02/29/20 16:59 DC 02/29/20 17:03 Sodium Chloride 1,000 ml @ 100 mls/hr Q10H IV 02/29/20 16:50 03/01/20 11:34 Lorazepam (Ativan Inj) 1 mg PRN Q4HRS PRN IV ANXIETY / AGITATION 02/29/20 17:00 02/29/20 18:35 Enoxaparin Sodium (Lovenox 40mg Syringe) 40 mg Q24H SQ 02/29/20 18:00 02/29/20 18:35 Piperacillin Sod/ Tazobactam Sod 3.375 gm/Sodium Chloride 50 ml @ 100 mls/hr Q6HRS IV 03/01/20 00:00 03/01/20 12:04 Fentanyl Citrate (Fentanyl 2ml Vial) 50 mcg PRN Q5MIN PRN IV MODERATE TO SEVERE PAIN 03/01/20 08:00 03/01/20 20:00 03/01/20 11:33 Ringer's Solution 1,000 ml @ 30 mls/hr Q24H IV 03/01/20 07:59 03/01/20 19:58 03/01/20 08:19 Bupivacaine HCl/ Epinephrine Bitart (Sensorcain-Epi 0.5%-1:736581 Mpf) 30 ml STK-MED ONCE .ROUTE 03/01/20 09:43 03/01/20 09:43 DC 03/01/20 10:23 Justifications for Admission Other Justification ELIOT FAJARDO MD Mar 01, 2020 13:53
[2020-03-01] MEDS: ENOXAPARIN 40 MG/0.4 ML SYRINGE. SQ SCH (17:30)
[2020-03-01] MEDS: oxyCODONE/APAP 5/325 1 TAB TABLET PO PRN (20:18)
[2020-03-02 03:00] VITALS: BP 105/59
[2020-03-02] MEDS: oxyCODONE/APAP 5/325 1 TAB TABLET PO PRN ×2 (05:31→10:42)
[2020-03-02] MEDS: PIPERACILLIN/TAZOBACTAM 3.375 GM in IV NORMAL SALINE 50ML 50 ML IV SCH ×2 (05:32→12:24)
[2020-03-02 07:05] VITALS: BP 108/65
[2020-03-02] MEDS: IV NORMAL SALINE 1000ML BAG 1,000 ML IV SCH (08:50)
--- NOTE | 2020-03-02 10:07 | NUR ---
SW following. Discussed with RN, pt had surgery yesterday (03/01/2020), room air, regular diet. Per RN, pt is wanting to discharge home today. Anticipate possible discharge today. SW will continue to follow, should any discharge needs arise.
[2020-03-02] MEDS ORDERED: OXYC1TAB15 PO (10:10)
--- NOTE | 2020-03-02 10:13 | PDOC ---
TESHA RIDER MANAGER ENGAGEMENT 03/02/20 1013: SURGICAL PROGRESS NOTE DATE: 03/02/20 TIME: 10:12 Subjective tolerating diet pain managed urinating Vital Signs Vital Signs Date Time Temp Pulse Resp B/P (MAP) Pulse Ox O2 Delivery O2 Flow Rate FiO2 03/02/20 07:05 97.7 69 19 108/65 (79) 93 Room Air 97.7 03/02/20 06:31 10.0 I&O Intake and Output 03/02/20 07:00 Intake Total 4640 ml Output Total 110 ml Balance 4530 ml Intake Oral 2540 ml IV Total 2100 ml Output Urine Total 100 ml Estimated Blood Loss 10 ml # Voids 6 General: Alert, Oriented X3, Cooperative Abdomen: Soft, Other (ND, lap sites dry) Labs Laboratory Tests Test 02/29/20 14:47 02/29/20 15:20 02/29/20 17:25 White Blood Count 14.8 x10^3/uL (4.0-11.0) Red Blood Count 5.30 x10^6/uL (4.30-5.70) Hemoglobin 15.9 g/dL (13.0-17.5) Hematocrit 46.1 % (39.0-53.0) Mean Corpuscular Volume 87 fL (79-100) Mean Corpuscular Hemoglobin 30 pg (25-35) Mean Corpuscular Hemoglobin Concent 34 g/dL (31-37) Red Cell Distribution Width 14.0 % (11.5-14.5) Platelet Count 195 x10^3/uL (140-400) Neutrophils (%) (Auto) 83 % (31-73) Lymphocytes (%) (Auto) 8 % (24-48) Monocytes (%) (Auto) 8 % (0-9) Eosinophils (%) (Auto) 0 % (0-3) Basophils (%) (Auto) 0 % (0-3) Neutrophils # (Auto) 12.3 x10^3/uL (1.8-7.7) Lymphocytes # (Auto) 1.2 x10^3/uL (1.0-4.8) Monocytes # (Auto) 1.2 x10^3/uL (0.0-1.1) Eosinophils # (Auto) 0.1 x10^3/uL (0.0-0.7) Basophils # (Auto) 0.0 x10^3/uL (0.0-0.2) Prothrombin Time 11.0 SEC (11.7-14.0) Prothromb Time International Ratio 0.8 (0.8-1.1) Sodium Level 139 mmol/L (136-145) Potassium Level 4.0 mmol/L (3.5-5.1) Chloride Level 101 mmol/L (98-107) Carbon Dioxide Level 27 mmol/L (21-32) Anion Gap 11 (6-14) Blood Urea Nitrogen 10 mg/dL (8-26) Creatinine 0.7 mg/dL (0.7-1.3) Estimated GFR (Cockcroft-Gault) 116.7 BUN/Creatinine Ratio 14 (6-20) Glucose Level 124 mg/dL (70-99) Calcium Level 9.5 mg/dL (8.5-10.1) Total Bilirubin 0.5 mg/dL (0.2-1.0) Aspartate Amino Transf (AST/SGOT) 31 U/L (15-37) Alanine Aminotransferase (ALT/SGPT) 77 U/L (16-63) Alkaline Phosphatase 49 U/L (46-116) Troponin I Quantitative < 0.017 ng/mL (0.000-0.055) Total Protein 7.5 g/dL (6.4-8.2) Albumin 4.5 g/dL (3.4-5.0) Albumin/Globulin Ratio 1.5 (1.0-1.7) Lipase 101 U/L (73-393) Urine Collection Type Unknown Urine Color Yellow Urine Clarity Clear Urine pH 6.0 (<5.0-8.0) Urine Specific Venus <=1.005 (1.000-1.030) Urine Protein Negative mg/dL (NEG-TRACE) Urine Glucose (UA) Negative mg/dL (NEG) Urine Ketones (Stick) Trace mg/dL (NEG) Urine Blood Negative (NEG) Urine Nitrite Negative (NEG) Urine Bilirubin Negative (NEG) Urine Urobilinogen Dipstick 1.0 mg/dL (0.2 mg/dL) Urine Leukocyte Esterase Negative (NEG) Urine RBC Occ /HPF (0-2) Urine WBC Occ /HPF (0-4) Urine Squamous Epithelial Cells Occ /LPF Urine Bacteria 0 /HPF (0-FEW) Urine Opiates Screen Neg (NEG) Urine Methadone Screen Neg (NEG) Urine Barbiturates Neg (NEG) Urine Phencyclidine Screen Neg (NEG) Urine Amphetamine/Methamphetamine Neg (NEG) Urine Benzodiazepines Screen Neg (NEG) Urine Cocaine Screen Neg (NEG) Urine Cannabinoids Screen Neg (NEG) Urine Ethyl Alcohol Neg (NEG) Coronavirus (PCR) Not detected (Not Detected) SARS-CoV-2 Antigen (Rapid) Negative (NEGATIVE) Problem List Problems Medical Problems: (1) Acute appendicitis Status: Acute Assessment/Plan s/p appy ok to or home FU 2 weeks Justicifation of Admission Dx: Justifications for Admission: Justification of Admission Dx: Yes ROEL PIMENTEL MD 03/02/20 1233: SURGICAL PROGRESS NOTE Assessment/Plan Agree with above TESHA RIDER MANAGER ENGAGEMENT Mar 02, 2020 10:13 ROEL PIMENTEL MD Mar 02, 2020 12:33
[2020-03-02 11:05] VITALS: BP 102/54
--- NOTE | 2020-03-02 12:37 | DISCH ---
DISCHARGE INSTRUCTIONS Condition on Discharge Condition on Discharge: Stable Activity After Discharge Activity Instructions for Disc: Activity as tolerated (Would recommend do not drive today or tomorrow. If taken oxycodone recommend commend not driving that day.) Lifting Instructions after Dis: Do not lift >10 pounds Driving Instructions after Dis: Do not drive today Weight Bearing Status after Di: As tolerated Follow-Up Follow up with: PCP within 1 week of discharge Follow Up With: Surgery for postoperative wound checks ELIOT FAJARDO MD Mar 02, 2020 12:37
--- NOTE | 2020-03-02 15:28 | NUR ---
Discharge Note: SHANE COON [address] [place] [address] Discharge instructions and discharge home medications reviewed with Patient and a copy given. All questions have been answered and understanding verbalized. The following instructions and handouts were given: Diet, activity, medication list and follow up instructions provided to patient. Discontinued lines and drains: Peripheral IV discontinued and catheter intact. Patient discharged to Home or Self Care withSpousevia Ambulated
--- NOTE | 2020-03-03 06:12 | PDOC3 ---
[facility]-Discharge Summary Date of Admission: Date of Admission: Feb 29, 2020 Date of Discharge: Date of Discharge: Mar 02, 2020 Admission Diagnosis: Admitting Diagnosis: Acute appendicitis Diabetes mellitus type 2 Leukocytosis secondary to appendicitis Discharge Diagnosis: Discharge Diagnosis: Acute appendicitis Diabetes mellitus type 2 Leukocytosis secondary to appendicitis Consults: Consults: General surgery Hospital Course: Hospital Course: 55-year-old gentleman with past medical history of diabetes mellitus type 2 who was in his usual state of health until this morning at 3 AM when he started complaining of right lower quadrant pain. The patient night prior had taken m edication for erectile dysfunction and was concerned that this may have provoked this sudden onset of abdominal pain. He tried to cope with the symptoms at home nevertheless he continued to progress to the point that he described the pain as a sharp sensation started as a 3 out of 10 intensity and finally when he consulted the emergency department was 10 out of 10. The patient has some nausea no vomiting no dietary transgressions no sick contacts have been reported. He was brought to the emergency department after just walking around was painful for the patient. He denied any chills no diaphoresis was reported no diarrhea and the patient was diagnosed with an acute appendicitis in the emergency department reason why we were asked to admit the patient for definitive treatment. Patient was admitted for further management and evaluation from surgery. Patient was taken to the OR for laparoscopic appendectomy. The procedure was well tolerated and postoperative course was uncomplicated. The rest of the hosp ital course was uneventful. Activity: Activity: Resume previous activity Medications: Home Meds Active Scripts Oxycodone/Apap 5-325 (PERCOCET 5-325 MG TABLET ) 1 Each Tablet, 1 TAB PO PRN Q4HRS PRN for MODERATE PAIN, #30 TAB 0 Refills Prov:TESHA RIDER W[employer] RESOURCE CONSULTANT 03/02/20 Scheduled PRN Oxycodone/Apap 5-325 (Percocet 5-325 Mg Tablet ), 1 TAB PO PRN Q4HRS PRN for MODERATE PAIN Total Time: Total Time: Total time spent was 28 minutes in preparing scripts, discharge planning with SW and RN, and preparing this discharge summary. Justicifation of Admission Dx: Justifications for Admission: Justification of Admission Dx: Yes ELIOT FAJARDO MD Mar 03, 2020 06:12
== END 2020-03-02 15:05 | disposition home or self-care (01) | DRG 343 ==
LOC: ER 14:24 → 4 NORTH 16:23
PROVIDERS: ADMIT Internal Medicine; ATTEND Internal Medicine
PROC: 0DTJ4ZZ Resection of Appendix, Percutaneous Endoscopic Approach (ICD-10-PCS; principal; 2020-03-01 10:15)
DX: K35.80 Unspecified acute appendicitis (principal); E11.9 Type 2 diabetes mellitus without complications; N52.9 Male erectile dysfunction, unspecified; Z20.828 Contact with and (suspected) exposure to other viral communicable diseases; Z87.891 Personal history of nicotine dependence
CPT/HCPCS: 36415; 74177; 80053; 80307; 81001; 83690; 84484; 85025; 85610; 87426; 93005; 96361; 96365; 96376; 99285; J0330; J1100; J1650; J1885; J2060; J2405; J2543; J2704; J2710; J3010; J3490; J7030; J7120; Q9967; G0378; U0003-CS